=== PATIENT | female | born 1975 | race Caucasian/White ===

== ENCOUNTER 2018-02-15 18:01 | Emergency (ER) ==
[2018-02-15 18:08] VITALS: BP 117/78; TEMP 100.9; BMI 27.9
[2018-02-15] MEDS ORDERED: ROCEPHIN 2 GM in SODIUM CHLORIDE 100 ML IV STA (18:34)
--- NOTE | 2018-02-15 18:38 | ED.PDOC ---
General Stated Complaint: abscess left foot ankle and foot suery 3 months ago Time Seen by Physician: 18:00 (see photos butch and nolberto present at all times ) Mode of Arrival: Walk-In Information Source: Patient Exam Limitations: No limitations Nursing and Triage Documentation Reviewed and Agree: Yes Does patient meet sepsis criteria?: Yes If yes, has appropriate treatment been initiated?: Yes System Inflammatory Response Syndrome: Temp 101F or Greater, Pulse >90 BPM <MARIAMA ALLISON - Last Filed: 02/15/18 18:31> <SHAWNA PRATER - Last Filed: 02/15/18 20:52> ED Provider: Dr. SHAWNA PRATER Chief Complaint: Abscess Sepsis Protocol: For patient's 13 years and over: Temp is 96.8 and below OR 101 and greater Pulse >90 BPM Resp >20/minute Acutely Altered Mental Status Are patient's symptoms suggestive of a new infection, such as: -Pneumonia -Skin, Soft Tissue -Endocarditis -UTI -Bone, Joint Infection -Implantable Device -Acute Abdominal Infection -Wound Infection -Meningitis -Blood Stream Catheter Infection -Unknown Review of Systems - Review Of Systems Constitutional: Reports: No symptoms Eyes: Reports: No symptoms Ears, Nose, Mouth, Throat: Reports: No symptoms Respiratory: Reports: No symptoms Cardiac: Reports: Other ("HEART RACING ") GI: Reports: No symptoms : Reports: No symptoms Musculoskeletal: Reports: No symptoms Skin: Reports: Other (foot ulcer left foot see photos) Neurological: Reports: No symptoms Endocrine: Reports: No symptoms Hematologic/Lymphatic: Reports: No symptoms All Other Systems: Reviewed and Negative <MARIAMA ALLISON - Last Filed: 02/15/18 18:31> Past Medical History - Past Medical History Previously Healthy: Yes Endocrine: Reports: None Cardiovascular: Reports: None Respiratory: Reports: None Hematological: Reports: None Gastrointestinal: Reports: None Genitourinary: Reports: None Neuro/Psych: Reports: None Musculoskeletal: Reports: Other (INFECTED BONE TAKEN OUT LEFTFOOT) Cancer: Reports: None Last Menstrual Period: 1 week ago - Surgical History General Surgical History: Reports: None - Family History Family History: Reports: None - Social History Smoking Status: Former smoker Hx Substance Use: No Alcohol Screening: None - Immunizations Tetanus Shot up to Date: No <MARIAMA ALLISON - Last Filed: 02/15/18 18:31> - Past Medical History Musculoskeletal: Reports: Other <MOISHAWNA Last Filed: 02/15/18 20:52> Physical Exam - Physical Exam Appearance: Well-appearing, No pain distress, Well-nourished Eyes: SOFY, EOMI, Conjunctiva clear ENT: Ears normal, Nose normal, Oropharynx normal Respiratory: Airway patent, Breath sounds clear, Breath sounds equal, Respirations nonlabored Cardiovascular: Pulses normal, No rub, No murmur, Tachycardia GI/: Soft, Nontender, No masses, Bowel sounds normal, No Organomegaly Musculoskeletal: Limited ROM (LEFT ANKLE PLEASE SEE PHOTOS) Skin: Warm, Dry, Normal color Neurological: Sensation intact, Motor intact, Reflexes intact, Cranial nerves intact, Alert, Oriented Psychiatric: Affect appropriate, Mood appropriate <ESTEFANYMARIAMA Last Filed: 02/15/18 18:31> Interpretation - Radiology Interpretation Radiology Interpretation By: Radiologist Radiology Results: Positive Exam Interpreted: CT Scan <SHARANJOSETTESHAWNA Filed: 02/15/18 20:52> Physician Notification - Case Discussed Physician Notified: MOI Time of Notification: 18:39 <ESTEFANYMARIAMA Last Filed: 02/15/18 18:31> - Case Discussed Physician Notified: Dr. Dejesus Time of Notification: 20:50 (accepted to [facility] ) <MOISHAWNA Last Filed: 02/15/18 20:52> Critical Care Note - Critical Care Note Total Time (mins): 0 <ESTEFANYMARIAMA Last Filed: 02/15/18 18:31> Course - Course Hematology/Chemistry: 02/15/18 18:44 02/15/18 18:44 <MOISHAWNA Last Filed: 02/15/18 20:52> - Course Orders, Labs, Meds: Lab Review 02/15/18 02/15/18 02/15/18 18:44 18:44 18:44 WBC 8.71 RBC 4.40 Hgb 10.0 L Hct 32.9 L MCV 74.8 L MCH 22.7 L MCHC 30.4 L RDW Coeff of Joshua 16.3 H Plt Count 323 Immature Gran % (Auto) 0.5 Neut % (Auto) 77.8 Lymph % (Auto) 13.9 [place] % (Auto) 7.0 Eos % (Auto) 0.7 Baso % (Auto) 0.1 Immature Gran # (Auto) 0.0 Neut # (Auto) 6.8 Lymph # (Auto) 1.2 [place] # (Auto) 0.6 Eos # (Auto) 0.1 Baso # (Auto) 0.0 Sodium 135 L Potassium 3.5 Chloride 102 Carbon Dioxide 21 Anion Gap 15.5 BUN 16 Creatinine 1.33 H Estimated GFR (MDRD) 44.00 BUN/Creatinine Ratio 12.03 Glucose 100 Lactic Acid 5.7 Calcium 9.2 Total Bilirubin 0.5 AST 11 L ALT 11 L Alkaline Phosphatase 132 H Total Protein 8.1 Albumin 2.9 L Globulin 5.2 Albumin/Globulin Ratio 0.56 Orders Category Date Time Status EKG-(ED ONLY) Stat CARDIO 02/15/18 18:33 Completed IV ACCESS ONCE CARE 02/15/18 18:37 Active IV [ED IV/MEDIPORT/POWERPORT] .ONCE EMERGENCY 02/15/18 19:24 Active BLOOD CULTURE (ED ONLY) Stat LAB 02/15/18 18:44 Received CBC W/ AUTO DIFF Stat LAB 02/15/18 18:44 Completed COMPREHENSIVE METABOLIC PANEL Stat LAB 02/15/18 18:44 Completed CULTURE WOUND [WOUND CULTURE] Stat LAB 02/15/18 18:18 Received LACTIC ACID Stat LAB 02/15/18 18:44 Completed 0.9 % Sodium Chloride [Saline Flush] MEDS 02/15/18 19:24 Ordered 1 syr IVF PRN PRN Ceftriaxone Sodium [Rocephin] MEDS 02/15/18 19:26 Discontinued 2 gm .ROUTE .STK-MED ONE Ceftriaxone Sodium [Rocephin] 2 gm MEDS 02/15/18 18:34 Discontinued 0.9 % Sodium Chloride [Sodium Chloride] 100 ml IV ONCE Vancomycin HCl [Vancomycin] 1 gm MEDS 02/15/18 20:33 Active 0.9 % Sodium Chloride [Sodium Chloride] [address] FOOT LEFT WITHOUT CONTRAST Stat RADS 02/15/18 18:34 Completed Medications Generic Name Dose Route Start Last Admin Trade Name Freq PRN Reason Stop Dose Admin Vancomycin HCl 1 gm/ Sodium 250 mls @ 250 mls/hr 02/15/18 20:33 Chloride IV 02/15/18 21:32 ONCE STA Sodium Chloride 1 syr 02/15/18 19:24 02/15/18 19:37 Saline Flush IVF 1 syr PRN PRN Administration To flush IV Discontinued Medications Generic Name Dose Route Start Last Admin Trade Name Freangelo PRN Reason Stop Dose Admin Ceftriaxone Sodium 2 gm/ 100 mls @ 100 mls/hr 02/15/18 18:34 02/15/18 19:34 Sodium Chloride IV 02/15/18 19:33 100 mls/hr ONCE STA Administration Vital Signs: Temp Pulse Resp BP Pulse Ox 02/15/18 18:44 107 H 98 02/15/18 18:01 100.9 F H 131 H 20 117/78 98 Departure - Departure Pt referred to PMD for follow-up: Yes IPMP verified?: No Disposition Discussed With: Patient, Family <MARIAMA ALLISON - Last Filed: 02/15/18 18:31> - Departure Time of Disposition: 20:50 Pt. Stabilized Within Hospital's Capabilities/Transferred To: [facility] Transfer Form Completed: Yes <SHAWNA PRATER - Last Filed: 02/15/18 20:52> - Departure Disposition: TSF SHORT-TRM HOSP Discharge Problem: Abscess Foot ulcer, left Qualifiers: Non-pressure ulcer stage: unspecified non-pressure ulcer stage Qualified Code(s ): L97.529 - Non-pressure chronic ulcer of other part of left foot with unspecified severity Instructions: Abscess (ED) Condition: Good Additional Instructions: Please call your Family Physician as soon as possible to schedule a follow-up appointment. Allergies/Adverse Reactions: Allergies aspirin Adverse Reaction (Verified 02/15/18 18:10) codeine Adverse Reaction (Verified 02/15/18 18:10) Home Medications: Ambulatory Orders 1 [No Reported Medications] 02/15/18
[2018-02-15] MEDS ORDERED: ROCEPHIN ONE (19:26)
--- NOTE | 2018-02-15 19:47 | CT ---
EXAM: CT left foot without intravenous contrast 02/15/2018. Sagittal and coronal reformatted images obtained HISTORY: Ulcer COMPARISON: None. FINDINGS: There is severe soft tissue swelling at the level of the distal leg and ankle. Limited ch aracterization of the soft tissues due to the lack of intravenous contrast. Low density within the s uperficial soft tissues lateral to the calcaneus may represent abscess. This can be seen on image 76 . This is contiguous with erosion and lucency which extends through the calcaneus. The appearance i s suggestive of extension of abscess through the calcaneus. There is also extensive sclerosis. Thi s likely represents chronic calcaneal osteomyelitis. There is a large area of soft tissue ulceration along the undersurface of the calcaneus. There is bony fragmentation along the inferior surface of the calcaneus. IMPRESSION: 1. Severe soft tissue swelling. Limited characterization of the soft tissues due to the lack of int ravenous contrast. 2. Low density within the soft tissues lateral to the calcaneus likely represents abscess. This is contiguous with lucency which extends through the calcaneus. This likely represents intraosseous ext ension of superficial soft tissue abscess. 3. Lucency and sclerosis throughout the calcaneus likely due to chronic osteomyelitis and abscess. 4. There is a large area of soft tissue ulceration inferior to the calcaneus. 5. Bony fragmentation along the under surface of the calcaneus. 6. MRI may be of benefit to characterize the extent of osteomyelitis.
[2018-02-15] MEDS ORDERED: VANCOMYCIN 1 GM in SODIUM CHLORIDE 250 ML IV STA (20:33)
== END 2018-02-15 21:55 | disposition short-term general hospital (02) ==
LOC: ED 18:01
DX: L97.529 Non-pressure chronic ulcer of other part of left foot with unspecified severity (principal)
CPT/HCPCS: 36415; 80053; 83605; 85025; 87040; 87070; 87186; 93005; 93010; 96365; 96367; 99285

== ENCOUNTER 2018-02-15 21:56 | Outpatient (CLI) ==
[2018-02-15 18:08] VITALS: BMI 27.9
== END 2018-02-15 22:16 | disposition short-term general hospital (02) ==
LOC: AMBL 21:56
PROVIDERS: ATTEND Internal Medicine Geriatric Medicine
DX: L97.509 Non-pressure chronic ulcer of other part of unspecified foot with unspecified severity (principal); L08.9 Local infection of the skin and subcutaneous tissue, unspecified

== ENCOUNTER 2018-09-13 15:31 | Outpatient (CLI) ==
--- NOTE | 2018-09-13 16:01 | DI ---
EXAM: Three views of the left foot. History: Left foot pain and ulcer Findings: No acute fracture or dislocation. Hallux valgus deformity. 2.3 cm soft tissue ulcer cathleen g the plantar surface of the foot. There is sclerosis and mild periostitis along the inferior margin of the calcaneus. Impression: Soft tissue ulcer along the plantar surface of the foot with findings suspicious for ost eomyelitis of the calcaneus. Recommend further evaluation with nuclear medicine study or MRI.
== END 2018-09-13 15:32 | disposition home or self-care (01) ==
LOC: RAD 15:31
PROVIDERS: ATTEND Nurse Practitioner Family
DX: R00.0 Tachycardia, unspecified (principal); S91.302A Unspecified open wound, left foot, initial encounter; L08.9 Local infection of the skin and subcutaneous tissue, unspecified; Z00.00 Encounter for general adult medical examination without abnormal findings
CPT/HCPCS: 36415; 80053; 80061; 84443; 85025; 87070; 87186; 93005; 93010

== ENCOUNTER 2018-09-28 11:14 | Outpatient (CLI) | END 2018-09-28 11:15 | disposition home or self-care (01) | LOC: RHC-LAB 11:14 | PROVIDERS: ATTEND Nurse Practitioner Family | DX: R30.0 Dysuria (principal); N39.0 Urinary tract infection, site not specified; L97.523 Non-pressure chronic ulcer of other part of left foot with necrosis of muscle; R73.9 Hyperglycemia, unspecified | CPT/HCPCS: 36415; 83037; 87086 ==

== ENCOUNTER 2018-10-17 15:57 | Outpatient (CLI) | END 2018-10-17 15:58 | disposition home or self-care (01) | LOC: RHC-LAB 15:57 | PROVIDERS: ATTEND Nurse Practitioner Family | DX: L97.523 Non-pressure chronic ulcer of other part of left foot with necrosis of muscle (principal) | CPT/HCPCS: 36415; 80048 ==